=== PATIENT | male | born 1990 | race Caucasian/White ===

== ENCOUNTER 2019-04-06 20:59 | Emergency (ER) | payer OTHER ==
--- NOTE | 2019-04-06 21:49 | ED ---
Psychiatric Complaint - HPI Summary HPI Summary: 28 year old male presents as 941 for mental health evaluation. He tried a rope around his neck and tried to lean back to see what would happen. He states he got scared and would not go through with a suicide attempt. He denies any neck pain. No shortness of breath. He states that he does have a history depression. Is not currently on medication. He has history of hypothyroidism and they are increasing his thyroid dose. Denies any drug or alcohol use. - History Of Current Complaint Chief Complaint: EDMentalHealth Time Seen by Provider: 04/06/19 21:40 - Allergies/Home Medications Allergies/Adverse Reactions: Allergies Allergy/AdvReac Type Severity Reaction Status Date / Time No Known Allergies Allergy Verified 04/06/19 21:11 Home Medications: Home Medications Levothyroxine Sodium 25 mcg PO DAILY 04/06/19 [History Confirmed 04/06/19] PMH/Surg Hx/FS Hx/Imm Hx Endocrine/Hematology History: Reports: Hx Thyroid Disease Respiratory History: Denies: Hx Asthma History: Reports: Other Problems/Disorders - UA in ED shows 2+ blood in urine. Psychiatric History: Denies: Hx Eating Disorder, Hx of Violent Episodes Against Others Infectious Disease History: No Infectious Disease History: Denies: Traveled Outside the [place] in Last 30 Days - Family History Known Family History: Positive: Non-Contributory - Social History Alcohol Use: Rare Alcohol Amount: once ever 2 months Substance Use Type: Reports: None Smoking Status (MU): Never Smoked Tobacco Review of Systems Negative: Fever Negative: Chest Pain Negative: Shortness Of Breath Positive: Depressed All Other Systems Reviewed And Are Negative: Yes Physical Exam Triage Information Reviewed: Yes Vital Signs On Initial Exam: Initial Vitals Temp Pulse Resp BP Pulse Ox 98.3 F 61 16 159/89 97 04/06/19 21:07 04/06/19 21:07 04/06/19 21:07 04/06/19 21:07 04/06/19 21:07 Vital Signs Reviewed: Yes Appearance: Positive: Well-Appearing Skin: Positive: Warm, Dry Head/Face: Positive: Normal Head/Face Inspection Eyes: Positive: Normal, Conjunctiva Clear ENT: Positive: Pharynx normal Neck: Positive: Other: - abrasion to neck, neck soft, no edema Respiratory/Lung Sounds: Positive: Clear to Auscultation, Breath Sounds Present Cardiovascular: Positive: Normal, RRR Musculoskeletal: Positive: Normal Neurological: Positive: Normal Psychiatric: Positive: Normal Procedures - Sedation Patient Received Moderate/Deep Sedation with Procedure: No Diagnostics - Vital Signs Vital Signs Temp Pulse Resp BP Pulse Ox 04/06/19 21:07 98.3 F 61 16 159/89 97 - Laboratory Result Diagrams: 04/06/19 22:10 04/06/19 22:10 Lab Statement: Any lab studies that have been ordered have been reviewed, and results considered in the medical decision making process. Course/Dx - Course Course Of Treatment: 28 year old male presents as 941 for mental health evaluation. He tried a rope around his neck and tried to lean back to see what would happen. He states he got scared and would not go through with a suicide attempt. He denies any neck pain. No shortness of breath. He states that he does have a history depression. Is not currently on medication. He has history of hypothyroidism and they are increasing his thyroid dose. Denies any drug or alcohol use. On exam has abrasions noted neck. No edema to neck. lungs CTA. He is medically clear for mental health. will be signed out to dr bowles pending MHE. - Differential Dx/Clinical Impression Differential Diagnosis/HQI/PQRI: Positive: Anxiety, Depression, Suicidal Ideation, Suicidal Gesture Provider Diagnosis: Mood disorder Discharge ED - Sign-Out/Discharge Documenting (check all that apply): Sign-Out Patient Signing out patient TO: Jason Bowles - Discharge Plan
[2019-04-06 22:07] LABS: Urine Appearance Cloudy; Urine Bilirubin Negative (Negative); Urine Blood 2+ (Negative); Urine Color Yellow; Urine Glucose Negative (Negative); Urine Ketones Trace (Negative); Urine Nitrite Negative (Negative); Urine Protein 1+(30 mg/dL) (Negative); Urine Specific Gravity 1.025 (1.010-1.030); Urine Urobilinogen Negative (Negative)
[2019-04-06 22:17] LABS: ABS Basophils 0.1 10^3/ul (0-0.2); ABS Eosinophils 0.4 10^3/ul (0-0.6); ABS Neutrophils 9.4 10^3/ul (1.5-7.7); Eosinophil % 3.2 %; Hematocrit 45 % (42-52); Hemoglobin 15.4 g/dL (14.0-18.0); Lymphocyte % 8.6 %; Mean Corpuscular HGB Conc 34 g/dL (31-36); Mean Corpuscular Hemoglobin 30 pg (27-31); Mean Corpuscular Volume 87 fL (80-94); Mean Platelet Volume 7.4 fL (7.4-10.4); Platelet Count 292 10^3/uL (150-450); Red Blood Count 5.23 10^6 /uL (4.18-5.48); Red Cell Distribution Width 14 % (10-15); White Blood Count 11.9 10^3/uL (3.5-10.8)
[2019-04-06 22:19] LABS: Urine Bacteria Absent (Absent); Urine Red Blood Cell 3+(>10/hpf) (Absent); Urine White Blood Cell Trace(0-5/hpf) (Absent)
[2019-04-06 22:34] LABS: Urine Benzodiazepine Screen None Detected (None Detect); Urine Opiates Screen None Detected (None Detect)
[2019-04-06 22:37] LABS: ALT 19 U/L (7-52); AST 23 U/L (13-39); Albumin 4.8 g/dL (3.2-5.2); Alkaline Phosphatase 63 U/L (34-104); Anion Gap 10 mmol/L (2-11); Blood Urea Nitrogen 13 mg/dL (6-24); CO2 Carbon Dioxide 26 mmol/L (22-32); Calcium 9.5 mg/dL (8.6-10.3); Chloride 102 mmol/L (101-111); Glucose 124 mg/dL (70-100); Potassium 3.7 mmol/L (3.5-5.0); Sodium 138 mmol/L (135-145)
[2019-04-06 22:54] LABS: Acetaminophen < 15 mcg/mL; Salicylate < 2.50 mg/dL (<30)
[2019-04-06 23:09] LABS: Alcohol < 10 mg/dL (<10)
[2019-04-06 23:10] LABS: TSH (Thyroid Stimulating Horm) 21.13 mcIU/mL (0.34-5.60)
[2019-04-06 23:12] LABS: Free T4 0.78 ng/dL (0.61-1.12)
[2019-04-06 23:26] LABS: BUN/Creatinine Ratio 13.5 (8-20); EGFR African American 114.6 (>60); EGFR Non-African American 94.7 (>60)
[2019-04-07 01:19] LABS: Albumin/Globulin Ratio 1.6 (1-3); Total Protein 7.8 g/dL (6.4-8.9)
--- NOTE | 2019-04-07 04:58 | ED ---
Progress - Progress Note Progress Note: Patient is a sign-out at 02:30 on 04/07/19 from JOCELIN Mina to Dr. Jason Hurtado MD at shift change, pending MHE and disposition. At 05:54, tailings man reports that the patients case was reviewed by Dr. Carver who will hold the patient at [facility] with a diagnosis of mood disorder. Patient requires transfer as there are no appropriate beds available at [facility], but will held at [facility] until an appropriate bed can be found at another psychiatric facility. Patient will be a sign-out at 07:00 on 04/07/[address] Jason Hurtado MD to Dr. Marino Huerta MD at shift [facility], pending disposition. Course/Dx - Course Course Of Treatment: Patient is a sign-out at 02:30 on 04/07/19 from JOCELIN Mina to Dr. Jason Hurtado MD at [facility], pending MHE and disposition. At 05:54, tailings man reports that the patients case was reviewed by Dr. Carver who will hold the patient at [facility] with a diagnosis of mood disorder. Patient requires transfer as there are no appropriate beds available at [facility], but will held at [facility] until an appropriate bed can be found at another psychiatric facility. Patient will be a sign-out at 07:00 on 04/07/[address] Jason Hurtado MD to Dr. Marino Huerta MD at [facility], pending disposition. - Diagnoses Provider Diagnoses: Adjustment disorder Discharge ED - Sign-Out/Discharge Documenting (check all that apply): Sign-Out Patient Signing out patient TO: Marino Huerta - Patient will be a sign-out at 07:[address] Jason Hurtado MD to Dr. Marino Huerta MD at shift change, pending disposition. - Discharge Plan Condition: Stable Disposition: HOME Forms: *Work Release Referrals: [facility] [Outside] - Billing Disposition and Condition Condition: STABLE Disposition: Home - Attestation Statements Document Initiated by Scribe: Yes Documenting Scribe: Rosario Ellsi Provider For Whom Scribe is Documenting (Include Credential): Jason Hurtado MD Scribe Attestation: oRsario Devine scribed for Jason Hurtado MD on 04/09/19 at 1545. Scribe Documentation Reviewed: Yes Provider Attestation: The documentation as recorded by the scribe, Rosario Ellis accurately reflects the service I personally performed and the decisions made by me, Jason Hurtado MD Status of Scribe Document: Viewed
[2019-04-07] MEDS ORDERED: Levothyroxine TAB* 25 MCG TAB PO ONE (08:49)
--- NOTE | 2019-04-07 09:47 | ED ---
Progress - Progress Note Progress Note: Patient is received as a sign out from Dr. Hurtado to Dr. Huerta at 0700 04/07/19 shift change pending disposition. It is planned that the patient will be transferred to another psychiatric facility as there are no appropriate beds available for this mental health patient. Accepting facility is pending at this time. 1033 - Patient's case was reviewed by Dr. Estevez. After review of case, Dr. Estevez states that the patient is safe to discharge. He is reported to be remorseful for the suicidal gesture that he made and is noted to have good insight. Family is comfortable with having him discharged to them. Patient will have outpatient mental health follow-up. Course/Dx - Course Course Of Treatment: Patient is a sign-out at 02:30 on 04/07/19 from JOCELIN Mina to Dr. Jason Hurtado MD at shift change, pending MHE and disposition. At 05:54, beater and pulper feeder reports that the patients case was reviewed by Dr. Carver who will hold the patient at [facility] with a diagnosis of mood disorder. Patient requires transfer as there are no appropriate beds available at [facility], but will held at [facility] until an appropriate bed can be found at another psychiatric facility. Patient will be a sign-out at 07:00 on 04/07/[address] Jason Hurtado MD to Dr. Marino Huerta MD at shift change, pending MH disposition. - Diagnoses Provider Diagnoses: Adjustment disorder - Provider Notifications Discussed Care Of Patient With: Bryn Estevez Time Discussed With Above Provider: 10:33 Instructed by Provider To: Other - 1033 - Patient's case was reviewed by Dr. Estevez. After review of case, Dr. Estevez states that the patient is safe to discharge. He is reported to be remorseful for the suicidal gesture that he made and is noted to have good insight. Family is comfortable with having him discharged to them. Patient will have outpatient mental health follow-up. Discharge ED - Sign-Out/Discharge Documenting (check all that apply): Patient Departure - discharge , Receiving Sign-Out Receiving patient FROM: Jason Hurtado - Discharge Plan Condition: Stable Disposition: HOME Forms: *Work Release Referrals: [facility] [Outside] - Billing Disposition and Condition Condition: STABLE Disposition: Home - Attestation Statements Document Initiated by Scribe: Yes Documenting Scribe: colin miller Provider For Whom Scribe is Documenting (Include Credential): Marino Serratoibpilar Attestation: I, colin miller, scribed for Marino Huerta on 04/10/19 at 1841. Scribe Documentation Reviewed: Yes Provider Attestation: The documentation as recorded by the anglea rivera joseph accurately reflects the service I personally performed and the decisions made by Marino tolbert Status of Scribe Document: Viewed
[2019-04-07 11:23] VITALS: BP 139/112
== END 2019-04-07 11:20 | disposition home or self-care (01) ==
LOC: ED 20:59
DX: F43.20 Adjustment disorder, unspecified (principal); F39 Unspecified mood [affective] disorder; F32.9 Major depressive disorder, single episode, unspecified; Z79.899 Other long term (current) drug therapy
CPT/HCPCS: 36415; 80053; 80307; 80320; 80329; 81003; 81015; 84439; 84443; 84479; 85025; 87086; 99285; A9270-GY; G0480